=== PATIENT | male | born 1950 | race Hispanic/Latino ===

== ENCOUNTER → 2019-02-06 | Day surgery (SDC) | payer MEDICARE ==
[~2019-02-06] MED LIST: ALLOPURINOL300 MG PO; AMLODIPINE BESY10 MG PO; BUPROPION HCL150 MG PO; CITALOPRAM HBR20 MG PO; CRESTOR10 MG PO; FENTANYL CITRATE/PF 100MCG/2 ML INJ ONE; GLUCAGON FOR INJ 1 MG VIAL ONE; JARDIANCE10 MG PO; LISINOPRIL-HCT1 EAC1 PO; LISINOPRIL10 MG PO; METFORMIN HCL500 MG PO; METOPROLOL SUCC50 MG PO; METRONIDAZOLE500 MG PO; MIDAZOLAM HCL 2 MG/2 ML VIAL ONE; PLAVIX75 MG PO; PROPOFOL IV EMULSION 10 MG/ML 50 ML VIAL ONE; SIMETHICONE 40 MG/0.6 ML BTL ONE
--- OUTSIDE RECORDS SUMMARY | 2019-02-06 10:22 | XMS REPORT | Encounter Summary ---
Author Organization Unknown Address [address] [place] [address] Phone [phone] Care Team Providers Care Fire Extinguisher Installer Name Role Phone Dr. Mike Dawson 3 [phone] Mauricio Shah MD 82 [phone] Dakotah Pinon MD 107 [phone] [facility] 111 [phone] Reason for Visit Hyperlipidemia; Gout; Hypertensive disorder; History of cerebrovascular accident without residual deficits; diabetes Instructions 1. Recurrent major depression citalopram 40 mg tablet Wellbutrin SR 150 mg tablet, 12 hr sustained-release 2. Type 2 diabetes mellitus metformin 500 mg tablet HbA1c (hemoglobin A1c), blood 3. Hypertensive disorder amlodipine 10 mg tablet Zestoretic 20 mg-25 mg tablet metoprolol succinate ER 50 mg tablet,extended release 24 hr CMP, serum or plasma electrocardiogram 4. Hyperlipidemia high cholesterol: care instructions Crestor 20 mg tablet lipid panel, serum 5. History of cerebrovascular accident without residual deficits Plavix 75 mg tablet 6. Gout allopurinol 300 mg tablet uric acid, serum or plasma 7. Depression screening 8. Body mass index 30+ - obesity learning about healthy weight 9. Chronic obstructive lung disease 10. Screening for cardiovascular system disease ankle brachial index Discussion Note: None recorded. Plan of Care Reminders Provider Appointments Est Patient 07/04/2018 8:00AM Mike Sutherland MD Return to Office on or around 07/22/2018 Mike Sutherland MD Lab CMP, Serum or Plasma 06/21/2018 [facility] Laboratory Lipid Panel, Serum 06/21/2018 [facility] Laboratory Uric Acid, Serum or Plasma 06/21/2018 [facility] Laboratory HbA1C (Hemoglobin a1C), Blood 06/21/2018 [facility] Laboratory Referral None recorded. Procedures None recorded. Surgeries None recorded. Imaging Ankle Brachial Index 06/21/2018 [facility] ([facility] [place] Electrocardiogram 06/21/2018 [facility] ([facility] [place] Medications Name Start Date allopurinol 300 mg tablet Take 1 tablet every day by oral route as directed for 90 days. amlodipine 10 mg tablet Take 1 tablet every day by oral route for 90 days. citalopram 40 mg tablet take 1 tablet daily. Crestor 20 mg tablet Take 1 tablet every day by oral route as directed for 90 days. metformin 500 mg tablet Take 0.5 tablets every day by oral route as directed for 90 days. metoprolol succinate ER 50 mg tablet,extended release 24 hr Take 1 tablet twice a day by oral route as directed for 90 days. Plavix 75 mg tablet Take 1 tablet every day by oral route as directed for 90 days. Wellbutrin SR 150 mg tablet, 12 hr sustained-release Take 1 tablet every day by oral route as directed for 30 days. Zestoretic 20 mg-25 mg tablet Take 1 tablet every day by oral route for 90 days. Medications Administered None recorded. Vitals Height Weight BMI Blood Pressure 5 ft 8 in 211.4 lbs 32.1 kg/m2 130/70 mm[Hg] Lab Results None recorded. Allergies Code Code System Name Reaction Severity Status Onset NKDA Problems Name Status Onset Date Source Hyperlipidemia Active 01/05/2016 Major Depressive Disorder Active 01/05/2016 Hypertensive Disorder Active 01/05/2016 History of Cerebrovascular Accident without Residual Deficits Active 01/05/2016 Gout Active 11/03/2016 Procedures Date Name Performed by 09/04/2013 Colonoscopy Information not available Cholecystectomy (Gall Bladder Removal) Information not available Appendectomy Information not available 06/21/2018 Ankle Brachial Index [facility] ([facility]) [address] [address] ([facility] [place]) 06/21/2018 Electrocardiogram [facility] ([facility]) [address] [address] ([facility] [address]) Vaccine List Vaccine Type influenza, high dose seasonal 01/05/20160.5 mL 02/03/20170.5 mL 03/10/20180.5 mL influenza, injectable, quadrivalent 02/03/2015 pneumococcal conjugate PCV 13 06/21/20160.5 mL pneumococcal polysaccharide PPV23 08/16/20170.5 mL zoster 06/21/20160.65 mL Social History Smoking Status Former Smoker (1/2 PPD) Past Encounters 06/21/2018 Recurrent Major Depression; Type 2 Diabetes Mellitus; Hypertensive Disorder; Hyperlipidemia; History of Cerebrovascular Accident without Residual Deficits; Gout; Depression Screening; Body Mass Index 30+ - Obesity; Chronic Obstructive Lung Disease; Screening for Cardiovascular System Disease Mike Sutherland MD: [address] [place] [address], Ph. History of Present Illness Note:F/u on chronic conditions. Needs refills. Compliant with meds. Non compliant with diet or exercise. Not checking glucose readings or BPs at home. No side effects with meds. Hx of major depression complaining of worsening sadness, poor motivation and lack of energy since 6 weeks ago. Denies restlessness, nervousness, suicidal/homicidal thoughts. Review of Systems Comprehensive General Adult ROS Reported By: Patient Constitutional: Constitutional: no fever Eyes: Eyes: no vision change ENMT: Ears: no ear pain. Nose: no sinus problems. Mouth/Throat: no sore throat Cardiovascular: Cardiovascular: no chest pain, no palpitations, no lightheadedness Respiratory: Respiratory: no cough, no wheezing, no shortness of breath Gastrointestinal: Gastrointestinal: no abdominal pain, no nausea, no vomiting, no constipation, no diarrhea Musculoskeletal: Musculoskeletal: no muscle aches, no swelling in the extremities Neurologic: Neurologic: no loss of consciousness, no headaches Psychiatric: Psych: no depression, no alcohol abuse, no anxiety, no suicidal thoughts Physical Exam General Adult Exam (male) Reported By: Patient Constitutional: General Appearance: healthy-appearing, obese. Level of Distress: NAD. Ambulation: ambulating normally Psychiatric: Insight: good judgement. Mental Status: active and alert, normal mood, normal affect. Orientation: to time, to place, to person Eyes: Lids and Conjunctivae: non-injected, no discharge ENMT: Ears: TMs clear. Oropharynx: moist mucous membranes Neck: Neck: supple, trachea midline. Thyroid: no enlargement, non-tender Lungs: Auscultation: breath sounds normal Cardiovascular: Heart Auscultation: RRR, normal S1, normal S2, no murmurs. Neck vessels: no carotid bruits. Pulses including femoral / pedal: normal throughout Abdomen: Inspection and Palpation: soft, non-distended, no tenderness, no guarding Musculoskeletal:: Motor Strength and Tone: normal, normal tone. Joints, Bones, and Muscles: normal movement of all extremities. Extremities: no edema Neurologic: Gait and Station: normal gait Skin: Inspection and palpation: no rash, no lesions
--- OUTSIDE RECORDS SUMMARY | 2019-02-06 10:23 | XMS REPORT | Encounter Summary ---
Author Organization Unknown Address [address] [place] [address] Phone [phone] Care Team Providers Care Director [employer] Name Role Phone Dr. iMke Dawson 3 [phone] Mauricio Shah MD 82 [phone] Dakotah Pinon MD 107 [phone] [facility] 111 [phone] Reason for Visit lab follow-up Instructions 1. Type 2 diabetes mellitus diabetic ophthalmology referral microalbumin:creatinine ratio, urine 2. Hyperlipidemia high cholesterol: care instructions 3. Recurrent major depression Wellbutrin SR 150 mg tablet, 12 hr sustained-release 4. Elevated liver enzymes level Discussion Note: None recorded. Plan of Care Reminders Provider Appointments Return to Office on or around 10/03/2018 Mike Sutherland MD Lab Microalbumin:creatinine Ratio, Urine 07/04/2018 [facility] Laboratory Referral Diabetic Ophthalmology Referral 07/04/2018 Procedures None recorded. Surgeries None recorded. Imaging None recorded. Medications Name Start Date allopurinol 300 mg tablet Take 1 tablet every day by oral route as directed for 90 days. amlodipine 10 mg tablet Take 1 tablet every day by oral route for 90 days. citalopram 40 mg tablet take 1 tablet daily. clopidogrel 75 mg tablet Take 1 tablet every day by oral route as directed for 90 days. lisinopril 20 mg-hydrochlorothiazide 25 mg tablet Take 1 tablet every day by oral route for 90 days. metformin 500 mg tablet Take 0.5 tablets every day by oral route as directed for 90 days. metoprolol succinate ER 50 mg tablet,extended release 24 hr Take 1 tablet twice a day by oral route as directed for 90 days. rosuvastatin 20 mg tablet Take 1 tablet every day by oral route as directed for 90 days. Wellbutrin SR 150 mg tablet, 12 hr sustained-release Take 1 tablet every day by oral route as directed for 30 days. Medications Administered None recorded. Vitals Height Weight BMI Blood Pressure 5 ft 8 in 213.4 lbs 32.4 kg/m2 108/60 mm[Hg] Lab Results Date Name Specimen Result Interpretation Description Value Range Status Address 06/21/2018 CMP, Serum or Plasma High Alt 69 U/L 0-55 U/L Final [facility] Laboratory: [address], [place] High Ast 78 U/L 5-34 U/L Final [facility] Laboratory: [address] [facility], [place] Bun 9.9 mg/dL 8.4-25.7 mg/dL Final [facility] Laboratory: [address] [place] [address], [place] Alk Phos 79 unit/L 40-150 unit/L Final [facility]: [address], [place] High Glucose 209 mg/dL 70-99 mg/dL Final [facility] Laboratory: [address] [facility] [place] Albumin 4.4 g/dL 3.5-5.0 g/dL Final [facility] Laboratory: [address] [place] [address] Creatinine 0.85 mg/dL 0.72-1.25 mg/dL Final [facility]: [address] [place] [address] eGFR Non- >60 mL/min/1.73m2 Final [facility] [address] [facility] Bilirubin 0.7 mg/dL 0.2-1.2 mg/dL Final [facility] Laboratory: [address] [place] [address] eGFR - >60 mL/min/1.73m2 Final [facility] Laboratory: [address] [place] [address] Sodium 137 mEq/L 136-145 mEq/L Final [facility] Laboratory: [address] [place] [address], [place] Potassium 4.0 mEq/L 3.5-5.1 mEq/L Final [facility] Laboratory: [address] Chloride 101 mmol/L 98-107 mmol/L Final [facility] Laboratory: [address] Total Protein 7.4 g/dL 6.4-8.3 g/dL Final [facility] Laboratory: [address] High Calcium 10.1 mg/dL 8.8-10.0 mg/dL Final [facility] Laboratory: [address] Co2 26.3 mmol/L 23.0-31.0 mmol/L Final [facility] Laboratory: [address] Anion Gap 10 calc Final [facility] Laboratory: [address] [place] [address], [place] 06/21/2018 Lipid Panel, Serum Low Hdl 39 mg/dL 40-60 mg/dL Final [facility] Laboratory: [address] High Triglyceride 182 mg/dL 0-149 mg/dL Final [facility] Laboratory: [address] VLDL Calc. 36 mg/dL Final [facility] Laboratory: [address] cholesterol/HDL Ratio 4.6 mg/dL Final [facility] Laboratory: [address] non-HDL Cholesterol Calc. 140 mg/dL 0-160 mg/dL Final [facility] Laboratory: [address] Cholesterol 179 mg/dL 0-199 mg/dL Final [facility] Laboratory: [address] LDL Calc. 104 mg/dL 0-130 mg/dL Final [facility] Laboratory: [address] [place] [address], [place] 06/21/2018 HbA1C (Hemoglobin a1C), Blood High A1C W/eag 10.0 % 1.0- 5.7 % Final [facility] Laboratory: [address] Average Blood Glucose 240 mg/dL Final [facility] Laboratory: [address] [place] [address], [place] 06/21/2018 Uric Acid, Serum or Plasma Uric Acid 4.9 mg/dL 3.5-7.2 mg/dL Final [facility] Laboratory: [address] Allergies Code Code System Name Reaction Severity Status Onset NKDA Problems Name Status Onset Date Source Hyperlipidemia Active 01/05/2016 Major Depressive Disorder Active 01/05/2016 Hypertensive Disorder Active 01/05/2016 History of Cerebrovascular Accident without Residual Deficits Active 01/05/2016 Gout Active 11/03/2016 Type 2 Diabetes Mellitus Active 07/04/2018 Procedures Date Name Performed by 09/04/2013 Colonoscopy Information not available Cholecystectomy (Gall Bladder Removal) Information not available Appendectomy Information not available Vaccine List Vaccine Type influenza, high dose seasonal 01/05/20160.5 mL 02/03/20170.5 mL 03/10/20180.5 mL influenza, injectable, quadrivalent 02/03/2015 pneumococcal conjugate PCV 13 06/21/20160.5 mL pneumococcal polysaccharide PPV23 08/16/20170.5 mL zoster 06/21/20160.65 mL Social History Smoking Status Former Smoker (1/2 PPD) Past Encounters 07/04/2018 Type 2 Diabetes Mellitus; Hyperlipidemia; Recurrent Major Depression; Elevated Liver Enzymes Level Mike Sutherland MD: [address] [place] [address], Ph. 06/21/2018 Recurrent Major Depression; Type 2 Diabetes Mellitus; Hypertensive Disorder; Hyperlipidemia; History of Cerebrovascular Accident without Residual Deficits; Gout; Depression Screening; Body Mass Index 30+ - Obesity; Chronic Obstructive Lung Disease; Screening for Cardiovascular System Disease Mike Sutherland MD: [address] [place] [address], Ph. History of Present Illness Note:Coming to discuss lab results. F/u on major depression: pt hasn't started the wellbutrin yet. Denies suicidal/homicidal thoughts. Review of Systems Comprehensive General Adult ROS Reported By: Patient Cardiovascular: Cardiovascular: no chest pain, no palpitations, no lightheadedness Respiratory: Respiratory: no cough, no wheezing, no shortness of breath Gastrointestinal: Gastrointestinal: no abdominal pain, no nausea, no vomiting, no constipation, no diarrhea Musculoskeletal: Musculoskeletal: no muscle aches, no swelling in the extremities Neurologic: Neurologic: no loss of consciousness, no headaches Psychiatric: Psych: no alcohol abuse, no anxiety, no suicidal thoughts, depression Physical Exam General Adult Exam (male) Reported By: Patient Constitutional: General Appearance: healthy-appearing, obese. Level of Distress: NAD. Ambulation: ambulating normally Psychiatric: Insight: good judgement. Mental Status: active and alert, normal mood, normal affect. Orientation: to time, to place, to person Eyes: Lids and Conjunctivae: non-injected, no discharge Neck: Neck: trachea midline Lungs: Auscultation: breath sounds normal Cardiovascular: Heart Auscultation: RRR, normal S1, normal S2, no murmurs Musculoskeletal:: Motor Strength and Tone: normal, normal tone. Joints, Bones, and Muscles: normal movement of all extremities. Extremities: no edema Neurologic: Gait and Station: normal gait
--- OUTSIDE RECORDS SUMMARY | 2019-02-06 10:23 | XMS REPORT | Encounter Summary ---
Author Organization Unknown Address [address] [place] [address] Phone [phone] Care Team Providers Care Compliance Representative Dealer Name Role Phone Dr. Mike Dawson 3 [phone] Mauricio Shah MD 82 [phone] Dakotah Pinon MD 107 [phone] [facility] 111 [phone] Reason for Visit Hyperlipidemia; Type 2 diabetes mellitus; Hypertensive disorder; AWV Annual Wellness Visit Male (VFP) Instructions 1. Adult health examination 2. Body mass index 30+ - obesity body mass index: care instructions learning about healthy weight 3. Type 2 diabetes mellitus without complication metformin 1,000 mg tablet HbA1c (hemoglobin A1c), blood microalbumin:creatinine ratio, urine 4. History of cerebrovascular accident without residual deficits Plavix 75 mg tablet 5. Hypertensive disorder Zestoretic 20 mg-25 mg tablet 6. Hyperlipidemia rosuvastatin 20 mg tablet high cholesterol: care instructions lipid panel, serum CMP, serum or plasma 7. Screening for malignant neoplasm of colon colonoscopy referral fecal occult blood, stool 8. Depression screening learning about depression 9. At risk for falls preventing falls: care instructions 10. Tinea pedis clotrimazole-betamethasone 1 %-0.05 % topical cream 11. Screening for malignant neoplasm of prostate Discussion Note: None recorded. Plan of Care Patient Instructions It was good to see you in the office today for your Medicare Annual Wellness Visit. You have been provided some information on healthy nutrition, including a diet rich in fruits and vegetables, minimizing simple carbohydrates, salt, and saturated fats. I want to encourage regular cardiovascular exercise such as walking at least 30 minutes daily, 5 times per week. Please remember to schedule any preventive health measures that we talked about today. You have also been provided education on fall prevention and community- based lifestyle interventions to help reduce health risks and promote healthy living in your Annual Wellness folder. Screening Recommendations 1. Vaccines Pneumonia: No further need Influenza: Next Fall 2. Colorectal Cancer Screening: Colonoscopy (every 10 years) Ordered 3. Annual Prostate Screening 4. Annual Depression Screening 5. Annual Alcohol Screening 6. Annual Fall Risk Screening 7. Annual Health Risk Assessment Reminders Provider Appointments Est Patient 01/16/2019 8:00AM Mike Sutherland MD Lab Fecal Occult Blood, Stool 10/16/2018 [facility] HbA1C (Hemoglobin a1C), Blood 10/16/2018 [facility] Laboratory Lipid Panel, Serum 10/16/2018 [facility] Laboratory CMP, Serum or Plasma 10/16/2018 [facility] Microalbumin:creatinine Ratio, Urine 10/16/2018 [facility] Laboratory Referral Colonoscopy Referral 10/16/2018 Sharifa Malagon MD Procedures None recorded. Surgeries None recorded. Imaging None recorded. Medications Name Start Date allopurinol 300 mg tablet Take 1 tablet every day by oral route as directed for 30 days. amlodipine 10 mg tablet Take 1 tablet every day by oral route for 90 days. bupropion HCl SR 150 mg tablet,12 hr sustained-release Take 1 tablet every day by oral route as directed for 30 days. citalopram 40 mg tablet take 1 tablet daily. clotrimazole-betamethasone 1 %-0.05 % topical cream APPLY TO THE AFFECTED AND SURROUNDING AREAS OF SKIN BY TOPICAL ROUTE 2 TIMES PER DAY IN THE MORNING AND EVENING FOR 2 WEEKS metformin 1,000 mg tablet Take 1 tablet twice a day by oral route for 90 days. metoprolol succinate ER 50 mg tablet,extended release 24 hr Take 1 tablet twice a day by oral route as directed for 90 days. Plavix 75 mg tablet Take 1 tablet every day by oral route as directed for 90 days. rosuvastatin 20 mg tablet TAKE 1 TABLET EVERY DAY DIRECTED Zestoretic 20 mg-25 mg tablet Take 1 tablet every day by oral route for 90 days. Medications Administered None recorded. Vitals Height Weight BMI Blood Pressure 5 ft 8 in 210 lbs 31.9 kg/m2 110/72 mm[Hg] Lab Results None recorded. Allergies Code Code System Name Reaction Severity Status Onset NKDA Problems Name Status Onset Date Source Hyperlipidemia Active 01/05/2016 Major Depressive Disorder Active 01/05/2016 Hypertensive Disorder Active 01/05/2016 History of Cerebrovascular Accident without Residual Deficits Active 01/05/2016 Gout Active 11/03/2016 Type 2 Diabetes Mellitus Active 07/04/2018 Procedures Date Name Performed by Colonoscopy Information not available Cholecystectomy (Gall Bladder Removal) Information not available Appendectomy Information not available Vaccine List Vaccine Type influenza, high dose seasonal 01/05/20160.5 mL 02/03/20170.5 mL 03/10/20180.5 mL influenza, injectable, quadrivalent 02/03/2015 pneumococcal conjugate PCV 13 06/21/20160.5 mL pneumococcal polysaccharide PPV23 08/16/20170.5 mL zoster 06/21/20160.65 mL Social History Smoking Status Former Smoker (1/2 PPD) Past Encounters 10/16/2018 Adult Health Examination; Body Mass Index 30+ - Obesity; Type 2 Diabetes Mellitus without Complication; History of Cerebrovascular Accident without Residual Deficits; Hypertensive Disorder; Hyperlipidemia; Screening for Malignant Neoplasm of Colon; Depression Screening; At Risk for Falls; Tinea Pedis; Screening for Malignant Neoplasm of Prostate Mike Sutherland MD: [address] [place] [address], Ph. History of Present Illness Mini Cog Reported By: Patient Functional Ability: Personal/Social/ Draw a clock and write in the numbers in the correct place, and set the time to 10 minutes after 11 o'clock was completed correctly? Yes, 3 word recall: Your nurse or doctor will ask you to remember 3 words. In 5 minutes, they will ask you to repeat them. Patient recalled 3 words Opioid Use Assessment Reported By: Patient Opioid Use Assessment:: Current Use of Opioids : no use of opioids (no further questions required) Note:F/u on chronic conditions. Needs refills. Compliant with meds. Non compliant with diet or exercise. Not checking glucose readings or BPs at home. No side effects with meds. No new concerns. Review of Systems Comprehensive General Adult ROS Reported By: Patient Constitutional: Constitutional: no fever Eyes: Eyes: no vision change ENMT: Ears: no ear pain. Mouth/Throat: no sore throat Cardiovascular: Cardiovascular: no chest pain, no palpitations, no lightheadedness Respiratory: Respiratory: no cough, no wheezing, no shortness of breath Gastrointestinal: Gastrointestinal: no abdominal pain, no nausea, no vomiting, no constipation, no diarrhea Musculoskeletal: Musculoskeletal: no muscle aches, no swelling in the extremities Integumentary: Skin: rash, itching Neurologic: Neurologic: no loss of consciousness, no headaches Psychiatric: Psych: no depression, no alcohol abuse, no anxiety, no suicidal thoughts Physical Exam General Adult Exam (male) Reported By: Patient Constitutional: General Appearance: healthy-appearing, obese. Level of Distress: NAD. Ambulation: ambulating normally Eyes: Lids and Conjunctivae: non-injected, no discharge. EOM: EOMI ENMT: Ears: TMs clear. Nose: no sinus tenderness. Lips, Teeth, and Gums: no mouth or lip ulcers. Oropharynx: moist mucous membranes Neck: Neck: supple, [...] Station: normal gait Skin: Inspection and palpation: ; scaly/flaking lesions in the feet
--- OUTSIDE RECORDS SUMMARY | 2019-02-06 10:23 | XMS REPORT | Encounter Summary ---
Author Organization Unknown Address [address] [place] [address] Phone [phone] Care Team Providers [employer] Portal Developer Name Role Phone Dr. Mike Dawson 3 [phone] Mauricio Shah MD 82 [phone] Dakotah Pinon MD 107 [phone] [facility] 111 [phone] Reason for Visit Hyperlipidemia; Type 2 diabetes mellitus; Major depressive disorder; Hypertensive disorder Instructions 1. Type 2 diabetes mellitus HbA1c (hemoglobin A1c), blood FreeStyle Gautam 14 Day [place] FreeStyle Gautam 14 Day Sensor kit 2. Hypertensive disorder 3. Hyperlipidemia high cholesterol: care instructions CMP, serum or plasma lipid panel, serum 4. Obesity learning about healthy weight 5. Influenza vaccination Fluzone High-Dose 2019-20 (PF) 180 mcg/0.5 mL intramuscular syringe 6. Recurrent major depression 7. Dyspnea spirometry testing 8. Chronic obstructive lung disease ProAir HFA 90 mcg/actuation aerosol inhaler Discussion Note: None recorded. Plan of Care Reminders Provider Appointments Return to Office on or around 04/09/2019 Mike Sutherland MD Lab HbA1C (Hemoglobin a1C), Blood 01/05/2019 [facility] CMP, Serum or Plasma 01/05/2019 [facility] Lipid Panel, Serum 01/05/2019 [facility] Referral None recorded. Procedures None recorded. [...] 40 mg tablet take 1 tablet daily. KEEP APPT! clopidogrel 75 mg tablet Take 1 tablet every day by oral route as directed for 90 days. clotrimazole-betamethasone 1 %-0.05 % topical cream APPLY TO THE AFFECTED AND SURROUNDING AREAS OF SKIN BY TOPICAL ROUTE 2 TIMES PER DAY IN THE MORNING AND EVENING FOR 2 WEEKS Jardiance 10 mg tablet Take 1 tablet every day by oral route as directed for 90 days. lisinopril 20 mg-hydrochlorothiazide 25 mg tablet Take 1 tablet every day by oral route for 90 days. metformin 1,000 mg tablet Take 1 tablet twice a day by oral route for 90 days. metoprolol succinate ER 50 mg tablet,extended release 24 hr Take 1 tablet twice a day by oral route as directed for 90 days. ProAir HFA 90 mcg/actuation aerosol inhaler Inhale 2 puffs every 6-8 hours by inhalation route as needed for 10 days. rosuvastatin 20 mg tablet TAKE 1 TABLET EVERY DAY DIRECTED Medications Administered None recorded. Vitals Height Weight BMI Blood Pressure 5 ft 8 in 212.2 lbs 32.3 kg/m2 132/84 mm[Hg] Results Lab Results None recorded. Allergies Code Code System Name Reaction Severity Status Onset NKDA Problems Name Status Onset Date Source Hyperlipidemia Active 01/05/2016 Major Depressive Disorder Active 01/05/2016 Hypertensive Disorder Active 01/05/2016 History of Cerebrovascular Accident without Residual Deficits Active 01/05/2016 Gout Active 11/03/2016 Atherosclerosis of Aorta Active 04/04/2018 Chronic Obstructive Lung Disease Active 06/21/2018 Type 2 Diabetes Mellitus Active 07/04/2018 Procedures Date Name Performed by Colonoscopy Information not available Cholecystectomy (Gall Bladder Removal) Information not available Appendectomy Information not available Vaccine List Vaccine Type influenza, high dose seasonal 01/05/20160.5 mL 02/03/20170.5 mL 03/10/20180.5 mL 01/05/20190.5 mL influenza, injectable, quadrivalent 02/03/2015 pneumococcal conjugate PCV 13 06/21/20160.5 mL pneumococcal polysaccharide PPV23 08/16/20170.5 mL zoster 06/21/20160.65 mL Social History Tobacco Smoking Status Former Smoker (1/2 PPD) Past Encounters 01/05/2019 Type 2 Diabetes Mellitus; Hypertensive Disorder; Hyperlipidemia; Obesity; Influenza Vaccination; Recurrent Major Depression; Dyspnea; Chronic Obstructive Lung Disease Mike Sutherland MD: [id number] [place] [address], Ph. History of Present Illness Note:F/u on chronic conditions. Compliant with meds, diet and exercise. Not checking glucose readings or BPs at home. No side effects with meds. No new concerns.<div>Depression: stable. Denies suicidal/homicidal thoughts.</div> Review of Systems Comprehensive General Adult ROS Reported By: Patient Constitutional: Constitutional: no fever Eyes: Eyes: no vision change ENMT: Ears: no ear pain. Mouth/Throat: no sore throat Cardiovascular: Cardiovascular: no chest pain, no palpitations, no lightheadedness Respiratory: Respiratory: no cough, no wheezing, shortness of breath Gastrointestinal: Gastrointestinal: no abdominal [...] S2, no murmurs. Neck vessels: no carotid bruits Abdomen: Inspection and Palpation: soft, non-distended, no tenderness, no guarding Musculoskeletal:: Motor Strength and Tone: normal, normal tone. Joints, Bones, and Muscles: normal movement of all extremities. Extremities: no edema Neurologic: Gait and Station: normal gait
[2019-02-06 11:57] VITALS: BP 125/71
== END | disposition home or self-care (01) ==
LOC: OR 08:35
PROVIDERS: ATTEND Internal Medicine Gastroenterology
DX: Z12.11 Encounter for screening for malignant neoplasm of colon (principal); D12.0 Benign neoplasm of cecum; D12.3 Benign neoplasm of transverse colon; D12.4 Benign neoplasm of descending colon; K29.50 Unspecified chronic gastritis without bleeding; K29.80 Duodenitis without bleeding; K21.0 Gastro-esophageal reflux disease with esophagitis; K57.30 Diverticulosis of large intestine without perforation or abscess without bleeding; K44.9 Diaphragmatic hernia without obstruction or gangrene; K64.8 Other hemorrhoids; E11.9 Type 2 diabetes mellitus without complications; E78.5 Hyperlipidemia, unspecified; I10 Essential (primary) hypertension; Z01.810 Encounter for preprocedural cardiovascular examination; Z79.02 Long term (current) use of antithrombotics/antiplatelets; Z79.84 Long term (current) use of oral hypoglycemic drugs; Z68.31 Body mass index [BMI] 31.0-31.9, adult; Z86.73 Personal history of transient ischemic attack (TIA), and cerebral infarction without residual deficits
CPT/HCPCS: 36415; 43239; 45384; 82948; 88305; 88312; 93005; J1610; J2250; J2704; J3010; 45378

== ENCOUNTER 2023-10-07 20:08 | Inpatient (IN) | payer MEDICARE ==
[~2023-10-07] VITALS: Ht 175.3 cm; Wt 89.8 kg
[~2023-10-07 20:08] MED LIST changes: -FENTANYL CITRATE/PF 100MCG/2 ML INJ ONE; -GLUCAGON FOR INJ 1 MG VIAL ONE; -MIDAZOLAM HCL 2 MG/2 ML VIAL ONE; -PROPOFOL IV EMULSION 10 MG/ML 50 ML VIAL ONE; -SIMETHICONE 40 MG/0.6 ML BTL ONE
[2023-10-07 20:46] VITALS: TEMP 98.5
[2023-10-07 20:58] LABS: BASOPHILS % 0.4 % (0.0-1.0); EOSINOPHILS # (AUTO) 0.1 (0.0-0.4); EOSINOPHILS % 2.3 % (0.0-6.0); HEMATOCRIT 42.9 % (38.2-49.6); HEMOGLOBIN 14.4 g/dL (14.0-18.0); LYMPHOCYTES % 38.1 % (18.0-39.1); MEAN CORPUSCULAR HEMOGLOBIN 33.3 pg (28-32); MEAN CORPUSCULAR HGB CONC 33.6 g/dL (31-35); MEAN CORPUSCULAR VOLUME 99.1 fL (81-99); MONOCYTES # (AUTO) 0.4 (0.2-0.8); MONOCYTES % 6.9 % (4.4-11.3); NEUTROPHILS # (AUTO) 2.7 (2.1-6.9); NEUTROPHILS % 52.1 % (38.7-80.0); PLATELET COUNT 202 x10e3/uL (140-360); RED BLOOD COUNT 4.33 x10e6/uL (4.3-5.7); RED CELL DISTRIBUTION WIDTH 13.2 % (11.7-14.4); WHITE BLOOD COUNT 5.25 x10e3/uL (4.8-10.8)
[2023-10-07 20:59] LABS: CLARITY,URINE TURBID (CLEAR); COLOR,URINE RED (YELLOW)
[2023-10-07 21:07] LABS: INR 0.94; PROTHROMBIN TIME 13.2 seconds (11.9-14.5)
[2023-10-07 21:08] LABS: PARTIAL THROMBOPLASTIN TIME 28.1 seconds (23.8-35.5)
[2023-10-07 21:10] LABS: LEUKOCYTE ESTERASE ,URINE NEGATIVE (NEGATIVE); NITRITE,URINE NEGATIVE (NEGATIVE); PH,URINE 7.5 (5 - 7); PROTEIN,URINE DIPSTICK >=300 (NEGATIVE)
[2023-10-07 21:11] LABS: BILIRUBIN,URINE NEGATIVE (NEGATIVE); GLUCOSE, URINE 1+ (NEGATIVE); KETONES,URINE NEGATIVE (NEGATIVE); RBC,URINE >50 /HPF (0-5); URINE UROBILINOGEN 0.2 mg/dL (0.2 - 1)
[2023-10-07 21:40] LABS: ALBUMIN 4.3 g/dL (3.5-5.0); ALBUMIN/GLOBULIN RATIO 1.4 (0.8-2.0); ANION GAP 17.4 mmol/L (8-16); BILIRUBIN,TOTAL 0.6 mg/dL (0.2-1.2); CALCIUM 9.6 mg/dL (8.4-10.2); CREATININE, SERUM 0.75 mg/dL (0.72-1.25); TOTAL PROTEIN 7.4 g/dL (6.5-8.1)
[2023-10-07 21:41] LABS: POTASSIUM 3.4 mmol/L (3.5-5.1)
[2023-10-07] MEDS ORDERED: IOPAMIDOL 370 MG/ML 100 ML INFUS..BTL INJ ONE (21:57)
[2023-10-07] MEDS ORDERED: SODIUM CHLORIDE 0.9% 250ML 250 ML ONE (21:58)
[2023-10-08] VITALS (11 sets, daily range): BP systolic 134–164; BP diastolic 61–94; PULSE 58–74; RESP 17–22; TEMP 97.5–98.6; O2SAT 94–99
[2023-10-08] MEDS ORDERED: DEXTROSE 50% SYRINGE 50 ML IV PRN (00:30)
[2023-10-08] MEDS: ONDANSETRON HCL INJ 2MG/ML 2ML 2 MG/ML VIAL IV PRN (05:08)
[2023-10-08] MEDS: Morphine 4mg INJECTION 4 MG/ML INJ IV PRN (05:09)
[2023-10-08] MEDS: SODIUM CHLORIDE 0.9% 1000ML 1,000 ML IV SCH (05:13)
[2023-10-08] MEDS: INSULIN REGULAR, HUMAN 100 UNIT/1 ML SQ SCH (07:30)
[2023-10-08] MEDS ORDERED: LISINOPRIL-HCT1 EACH PO (09:55)
[2023-10-08] MEDS ORDERED: MELATONIN 3 MG TAB PO PRN (14:30)
[2023-10-09] VITALS (11 sets, daily range): BP systolic 139–169; BP diastolic 64–79; PULSE 64–85; RESP 18–22; TEMP 97.8–99.5; O2SAT 95–99
[2023-10-09 05:30] LABS: BASOPHILS % 0.2 % (0.0-1.0); EOSINOPHILS # (AUTO) 0.1 (0.0-0.4); EOSINOPHILS % 1.3 % (0.0-6.0); HEMOGLOBIN 11.6 g/dL (14.0-18.0); LYMPHOCYTES # (AUTO) 2.2 (1.0-3.2); LYMPHOCYTES % 25.8 % (18.0-39.1); MEAN CORPUSCULAR HEMOGLOBIN 33.1 pg (28-32); MEAN CORPUSCULAR HGB CONC 33.1 g/dL (31-35); MONOCYTES # (AUTO) 0.7 (0.2-0.8); MONOCYTES % 8.1 % (4.4-11.3); NEUTROPHILS # (AUTO) 5.4 (2.1-6.9); NEUTROPHILS % 64.2 % (38.7-80.0); PLATELET COUNT 146 x10e3/uL (140-360); RED CELL DISTRIBUTION WIDTH 13.2 % (11.7-14.4); WHITE BLOOD COUNT 8.38 x10e3/uL (4.8-10.8)
[2023-10-09 05:56] LABS: CHOL/HDL RATIO 2.3 (3.9-4.7)
[2023-10-09 05:58] LABS: ALBUMIN 3.3 g/dL (3.5-5.0); ALBUMIN/GLOBULIN RATIO 1.4 (0.8-2.0); ANION GAP 11.5 mmol/L (8-16); CALCIUM 8.2 mg/dL (8.4-10.2); CREATININE, SERUM 0.68 mg/dL (0.72-1.25); POTASSIUM 3.5 mmol/L (3.5-5.1); TOTAL PROTEIN 5.7 g/dL (6.5-8.1)
[2023-10-09 06:25] LABS: BILIRUBIN,TOTAL 0.6 mg/dL (0.2-1.2)
[2023-10-09] MEDS: SIMVASTATIN 40 MG TAB PO SCH (08:47)
[2023-10-09] MEDS: CITALOPRAM HYDROBROMIDE 20 MG TAB PO SCH (08:47)
[2023-10-09] MEDS: METOPROLOL SUCCINATE 50 MG TAB XL PO SCH (08:48)
[2023-10-09] MEDS: AMLODIPINE BESYLATE 10 MG TAB PO SCH (08:48)
[2023-10-09] MEDS: BUPROPION HCL SR 150 MG TAB PO SCH (08:49)
[2023-10-09] MEDS: ALLOPURINOL 300 MG TAB PO SCH (08:49)
[2023-10-09] MEDS ORDERED: NICOTINE 21 MG/EA PATCH TOP PRN (11:15)
[2023-10-09] MEDS: DOCUSATE SODIUM 100 MG CAP PO PRN (11:41)
[2023-10-09] MEDS: ALBUTEROL/IPRATROPIUM 3 ML NEB NEB PRN (16:39)
[2023-10-10] VITALS (8 sets, daily range): BP systolic 128–161; BP diastolic 65–81; PULSE 63–76; RESP 18–20; TEMP 97.5–99.1; O2SAT 93–97
[2023-10-10 05:36] LABS: ANION GAP 12.2 mmol/L (8-16); BLOOD UREA NITROGEN < 5 mg/dL (7-26); CALCIUM 8.3 mg/dL (8.4-10.2); CARBON DIOXIDE 24 mmol/L (22-29); CHLORIDE 105 mmol/L (98-107); EST GLOMERULAR FILTRATION RATE 103 ML/MIN (>=60); GLUCOSE 125 mg/dL (74-118); SODIUM 138 mmol/L (136-145)
[2023-10-10 05:37] LABS: BUN/CREATININE RATIO 8 (6-25); POTASSIUM 3.2 mmol/L (3.5-5.1)
[2023-10-10] MEDS ORDERED: IOPAMIDOL 610MG/1ML 300 MG/ML VIAL IV ONE (07:34)
[2023-10-10 08:45] LABS: HEMATOCRIT 34.7 % (38.2-49.6); HEMOGLOBIN 11.8 g/dL (14.0-18.0)
[2023-10-10] MEDS ORDERED: PHENAZOPYRIDINE HCL 100 MG TAB PO PRN (09:45)
[2023-10-10] MEDS: FENTANYL CITRATE/PF 100MCG/2 ML INJ ONE (09:52)
[2023-10-10] MEDS: METOPROLOL SUCCINATE 25 MG TAB XL PO SCH (10:59)
[2023-10-10] MEDS: NIFEDIPINE CR 30 MG TAB PO SCH (10:59)
[2023-10-10] MEDS ORDERED: ROCURONIUM BROMIDE 10 MG/ML 5ML VIAL IV ONE (12:33)
[2023-10-10] MEDS ORDERED: CEFTRIAXONE 1 GM VIAL ONE (12:33)
[2023-10-10] MEDS ORDERED: LIDOCAINE HCL 2% LOCAL INJ 5 ML SDV VIAL INJ ONE (12:33)
[2023-10-10] MEDS ORDERED: PROPOFOL IV EMULSION 10 MG/ML 20 ML VIAL ONE (12:33)
[2023-10-10] MEDS ORDERED: SEVOFLURANE INHAL SOLN 250 ML PEN BTL ONE (12:33)
[2023-10-10] MEDS ORDERED: EPHEDRINE SULFATE INJ 50 MG/ML VIAL ONE (12:33)
[2023-10-10] MEDS ORDERED: FENTANYL CITRATE/PF 100MCG/2 ML INJ ONE (17:41)
[2023-10-11] VITALS (8 sets, daily range): BP systolic 128–146; BP diastolic 63–73; PULSE 65–74; RESP 17–20; TEMP 97.8–99.1; O2SAT 94–97
[2023-10-11 05:24] LABS: BASOPHILS % 0.3 % (0.0-1.0); EOSINOPHILS # (AUTO) 0.1 (0.0-0.4); EOSINOPHILS % 1.8 % (0.0-6.0); HEMATOCRIT 35.6 % (38.2-49.6); LYMPHOCYTES # (AUTO) 1.7 (1.0-3.2); LYMPHOCYTES % 21.9 % (18.0-39.1); MEAN CORPUSCULAR HEMOGLOBIN 33.6 pg (28-32); MEAN CORPUSCULAR HGB CONC 33.7 g/dL (31-35); MEAN CORPUSCULAR VOLUME 99.7 fL (81-99); MONOCYTES # (AUTO) 0.7 (0.2-0.8); MONOCYTES % 8.7 % (4.4-11.3); NEUTROPHILS # (AUTO) 5.3 (2.1-6.9); NEUTROPHILS % 67.2 % (38.7-80.0); PLATELET COUNT 151 x10e3/uL (140-360); RED BLOOD COUNT 3.57 x10e6/uL (4.3-5.7); RED CELL DISTRIBUTION WIDTH 13.1 % (11.7-14.4)
[2023-10-11 05:43] LABS: ANION GAP 12.6 mmol/L (8-16); BLOOD UREA NITROGEN < 5 mg/dL (7-26); CALCIUM 8.5 mg/dL (8.4-10.2); CARBON DIOXIDE 24 mmol/L (22-29); CHLORIDE 107 mmol/L (98-107); CREATININE, SERUM 0.62 mg/dL (0.72-1.25); EST GLOMERULAR FILTRATION RATE 102 ML/MIN (>=60); GLUCOSE 116 mg/dL (74-118); POTASSIUM 3.6 mmol/L (3.5-5.1); SODIUM 140 mmol/L (136-145)
[2023-10-11 05:44] LABS: BUN/CREATININE RATIO 8 (6-25)
[2023-10-11] MEDS: FAMOTIDINE 20 MG/2 ML VIAL IV SCH (22:05)
[2023-10-12] VITALS: BP 120/63; PULSE 77; RESP 18; TEMP 99.1; O2SAT 97
[2023-10-12 03:53] VITALS: BP 146/73; PULSE 74; RESP 18; TEMP 98.2; O2SAT 95
[2023-10-12 04:00] VITALS: BP 121/67; PULSE 86; RESP 18; TEMP 98.7; O2SAT 96
[2023-10-12 07:38] VITALS: PULSE 80; RESP 18; O2SAT 94
[2023-10-12 07:46] VITALS: BP 138/73; PULSE 75; RESP 18; TEMP 98.9; O2SAT 94
[2023-10-12] MEDS ORDERED: CEPHALEXIN500 MG PO (08:09)
[2023-10-12 11:29] VITALS: BP 135/61; PULSE 75; RESP 18; TEMP 99; O2SAT 98
[2023-10-18] MEDS ORDERED: CRESTOR40 MG (15:27)
[2023-10-18] MEDS ORDERED: LISINOPRIL-HCT1 EACH (15:27)
[2023-10-18] MEDS ORDERED: METFORMIN HCL850 MG PO (15:27)
[2023-10-18] MEDS ORDERED: CEPHALEXIN500 MG PO (15:27)
== END 2023-10-12 12:35 | disposition home or self-care (01) | DRG 696 ==
LOC: ER 20:12 → ERHOLD 10-08 00:17 → MED/SURG3 10-08 03:26
PROVIDERS: ADMIT Internal Medicine; ATTEND Internal Medicine
PROC: 0T9B70Z Drainage of Bladder with Drainage Device, Via Natural or Artificial Opening (ICD-10-PCS; principal; 2023-10-08)
PROC: 0TJB8ZZ Inspection of Bladder, Via Natural or Artificial Opening Endoscopic (ICD-10-PCS; 2023-10-10)
PROC: 0T9B70Z Drainage of Bladder with Drainage Device, Via Natural or Artificial Opening (ICD-10-PCS; 2023-10-10)
PROC: BT161ZZ Fluoroscopy of Right Ureter using Low Osmolar Contrast (ICD-10-PCS; 2023-10-10)
PROC: BT171ZZ Fluoroscopy of Left Ureter using Low Osmolar Contrast (ICD-10-PCS; 2023-10-10)
PROC: 0DJD7ZZ Inspection of Lower Intestinal Tract, Via Natural or Artificial Opening (ICD-10-PCS; 2023-10-10)
DX: R31.0 Gross hematuria (principal); I69.951 Hemiplegia and hemiparesis following unspecified cerebrovascular disease affecting right dominant side; E83.51 Hypocalcemia; I10 Essential (primary) hypertension; E11.9 Type 2 diabetes mellitus without complications; N31.9 Neuromuscular dysfunction of bladder, unspecified; J44.9 Chronic obstructive pulmonary disease, unspecified; E78.5 Hyperlipidemia, unspecified; M10.9 Gout, unspecified; N40.0 Benign prostatic hyperplasia without lower urinary tract symptoms; E66.9 Obesity, unspecified; Z68.29 Body mass index [BMI] 29.0-29.9, adult; Z11.52 Encounter for screening for COVID-19; Z79.02 Long term (current) use of antithrombotics/antiplatelets; Z79.84 Long term (current) use of oral hypoglycemic drugs; Z90.49 Acquired absence of other specified parts of digestive tract; F17.210 Nicotine dependence, cigarettes, uncomplicated
CPT/HCPCS: 36415; 51703; 74178; 74420; 80048; 80053; 80061; 81001; 82948; 83036; 85014; 85018; 85025; 85610; 85730; 94640; 94799; 99284; C1769; J0696; J2001; J2270; J2405; J7030; J7050; Q9967; U0002

== ENCOUNTER 2023-10-15 12:53 | Emergency (ER) | payer MEDICARE ==
[~2023-10-15] VITALS: Ht 175.3 cm; Wt 89.8 kg
[~2023-10-15 12:53] MED LIST changes: +CEPHALEXIN500 MG PO; +LISINOPRIL-HCT1 EACH PO
[2023-10-15 13:36] VITALS: PULSE 74; RESP 16; TEMP 98.3; O2SAT 99
[2023-10-18] MEDS ORDERED: CRESTOR40 MG (15:27)
[2023-10-18] MEDS ORDERED: CEPHALEXIN500 MG PO (15:27)
[2023-10-18] MEDS ORDERED: METFORMIN HCL850 MG PO (15:27)
[2023-10-18] MEDS ORDERED: LISINOPRIL-HCT1 EACH (15:27)
== END 2023-10-15 16:00 | disposition home or self-care (01) ==
LOC: ER 13:04
DX: Z46.6 Encounter for fitting and adjustment of urinary device (principal); I10 Essential (primary) hypertension; E11.9 Type 2 diabetes mellitus without complications; J44.9 Chronic obstructive pulmonary disease, unspecified; E78.5 Hyperlipidemia, unspecified; M10.9 Gout, unspecified; I69.351 Hemiplegia and hemiparesis following cerebral infarction affecting right dominant side
CPT/HCPCS: 87086; 99282

== ENCOUNTER 2023-10-20 05:41 | Inpatient (IN) | payer MEDICARE ==
[2023-10-19 08:38] LABS: BASOPHILS % 0.5 % (0.0-1.0); EOSINOPHILS # (AUTO) 0.3 (0.0-0.4); HEMATOCRIT 42.1 % (38.2-49.6); HEMOGLOBIN 13.8 g/dL (14.0-18.0); LYMPHOCYTES # (AUTO) 2.1 (1.0-3.2); LYMPHOCYTES % 25.5 % (18.0-39.1); MEAN CORPUSCULAR HEMOGLOBIN 32.5 pg (28-32); MEAN CORPUSCULAR HGB CONC 32.8 g/dL (31-35); MEAN CORPUSCULAR VOLUME 99.3 fL (81-99); MONOCYTES # (AUTO) 0.6 (0.2-0.8); MONOCYTES % 7.2 % (4.4-11.3); NEUTROPHILS # (AUTO) 5.3 (2.1-6.9); NEUTROPHILS % 63.4 % (38.7-80.0); PLATELET COUNT 283 x10e3/uL (140-360); RED BLOOD COUNT 4.24 x10e6/uL (4.3-5.7); RED CELL DISTRIBUTION WIDTH 12.4 % (11.7-14.4); WHITE BLOOD COUNT 8.29 x10e3/uL (4.8-10.8)
[2023-10-19 08:57] LABS: ANION GAP 9.8 mmol/L (8-16); CALCIUM 10.2 mg/dL (8.4-10.2); CREATININE, SERUM 0.79 mg/dL (0.72-1.25); POTASSIUM 3.8 mmol/L (3.5-5.1)
[~2023-10-20] VITALS: Ht 175.3 cm; Wt 89.8 kg
[~2023-10-20 05:41] MED LIST changes: +CRESTOR40 MG; +LISINOPRIL-HCT1 EACH; +METFORMIN HCL850 MG PO
[2023-10-20] MEDS ORDERED: IOPAMIDOL 610MG/1ML 300 MG/ML VIAL IV ONE (06:20)
[2023-10-20] MEDS: CEFTRIAXONE 1 GM VIAL ONE (06:29)
[2023-10-20] MEDS: SODIUM CHLORIDE 0.9% 1000ML 1,000 ML ONE (06:30)
[2023-10-20] MEDS: GENTAMICIN 80MG/NS 100 ML 200 ML IV ONE (06:30)
[2023-10-20] MEDS ORDERED: SENNA-S TABLET PO SCH (09:00)
[2023-10-20] MEDS ORDERED: PHENAZOPYRIDINE HCL 100 MG TAB PO PRN (09:00)
[2023-10-20] MEDS: SODIUM CHLORIDE 0.9% 1000ML 1,000 ML IV SCH (09:00)
[2023-10-20] MEDS ORDERED: DIPHENHYDRAMINE HCL 25 MG CAP PO PRN (09:00)
[2023-10-20] MEDS ORDERED: ACETAMINOPHEN/CODEINE 300MG - 30MG TAB PO PRN (09:00)
[2023-10-20] MEDS ORDERED: ONDANSETRON HCL INJ 2MG/ML 2ML 2 MG/ML VIAL IV PRN (09:00)
[2023-10-20 09:31] LABS: BASOPHILS % 0.3 % (0.0-1.0); EOSINOPHILS # (AUTO) 0.2 (0.0-0.4); EOSINOPHILS % 1.9 % (0.0-6.0); HEMATOCRIT 36.7 % (38.2-49.6); HEMOGLOBIN 11.8 g/dL (14.0-18.0); LYMPHOCYTES # (AUTO) 1.6 (1.0-3.2); LYMPHOCYTES % 17.8 % (18.0-39.1); MEAN CORPUSCULAR HEMOGLOBIN 32.8 pg (28-32); MEAN CORPUSCULAR HGB CONC 32.2 g/dL (31-35); MEAN CORPUSCULAR VOLUME 101.9 fL (81-99); MONOCYTES # (AUTO) 0.3 (0.2-0.8); MONOCYTES % 3.7 % (4.4-11.3); NEUTROPHILS # (AUTO) 6.7 (2.1-6.9); NEUTROPHILS % 75.8 % (38.7-80.0); PLATELET COUNT 242 x10e3/uL (140-360); RED CELL DISTRIBUTION WIDTH 12.7 % (11.7-14.4); WHITE BLOOD COUNT 8.82 x10e3/uL (4.8-10.8)
[2023-10-20 09:49] LABS: ANION GAP 13.3 mmol/L (8-16); CALCIUM 7.8 mg/dL (8.4-10.2); CREATININE, SERUM 0.76 mg/dL (0.72-1.25); POTASSIUM 4.3 mmol/L (3.5-5.1)
[2023-10-20] MEDS: FENTANYL CITRATE/PF 100MCG/2 ML INJ IV ONE (09:58)
[2023-10-20 11:35] VITALS: BP 122/65; PULSE 74; RESP 16; O2SAT 97
[2023-10-20] MEDS ORDERED: PROPOFOL IV EMULSION 10 MG/ML 20 ML VIAL ONE (13:38)
[2023-10-20] MEDS ORDERED: LIDOCAINE HCL 2% LOCAL INJ 5 ML SDV VIAL INJ ONE (13:38)
[2023-10-20] MEDS ORDERED: ONDANSETRON HCL INJ 2MG/ML 2ML 2 MG/ML VIAL ONE (13:38)
[2023-10-20] MEDS ORDERED: EPHEDRINE SULFATE INJ 50 MG/ML VIAL ONE (13:38)
[2023-10-20] MEDS ORDERED: ACETAMINOPHEN 1000 MG/100 ML IV ONE (13:38)
[2023-10-20] MEDS ORDERED: DEXAMETHASONE SOD PHOS INJ 4 MG/ML SDV ONE (13:38)
[2023-10-20] MEDS ORDERED: SEVOFLURANE INHAL SOLN 250 ML PEN BTL ONE (13:38)
[2023-10-20 13:51] VITALS: PULSE 78; RESP 18; O2SAT 96
[2023-10-20] MEDS ORDERED: FENTANYL CITRATE/PF 100MCG/2 ML INJ ONE (14:34)
[2023-10-20 15:58] VITALS: BP 138/69; PULSE 69; RESP 19; TEMP 98; O2SAT 98
[2023-10-20 19:40] VITALS: PULSE 77; RESP 18; O2SAT 99
[2023-10-20 20:00] VITALS: BP 125/92; PULSE 64; RESP 18; TEMP 98.3; O2SAT 96
[2023-10-21] VITALS (9 sets, daily range): BP systolic 123–151; BP diastolic 59–74; PULSE 61–79; RESP 16–20; TEMP 97.7–98.7; O2SAT 96–98
[2023-10-21 05:03] LABS: BASOPHILS % 0.2 % (0.0-1.0); HEMATOCRIT 35.4 % (38.2-49.6); HEMOGLOBIN 11.7 g/dL (14.0-18.0); LYMPHOCYTES # (AUTO) 1.5 (1.0-3.2); LYMPHOCYTES % 13.2 % (18.0-39.1); MEAN CORPUSCULAR HEMOGLOBIN 32.8 pg (28-32); MEAN CORPUSCULAR HGB CONC 33.1 g/dL (31-35); MEAN CORPUSCULAR VOLUME 99.2 fL (81-99); MONOCYTES # (AUTO) 0.6 (0.2-0.8); MONOCYTES % 5.2 % (4.4-11.3); NEUTROPHILS # (AUTO) 9.3 (2.1-6.9); NEUTROPHILS % 80.9 % (38.7-80.0); PLATELET COUNT 249 x10e3/uL (140-360); RED BLOOD COUNT 3.57 x10e6/uL (4.3-5.7); RED CELL DISTRIBUTION WIDTH 12.3 % (11.7-14.4); WHITE BLOOD COUNT 11.48 x10e3/uL (4.8-10.8)
[2023-10-21 05:45] LABS: ANION GAP 8.1 mmol/L (8-16); CREATININE, SERUM 0.67 mg/dL (0.72-1.25); POTASSIUM 4.1 mmol/L (3.5-5.1)
[2023-10-21] MEDS: FENTANYL CITRATE/PF 100MCG/2 ML INJ ONE (09:36)
[2023-10-21] MEDS: SENNA-S TABLET PO SCH (09:42)
[2023-10-21] MEDS ORDERED: DEXTROSE 50% SYRINGE 50 ML IV PRN (17:15)
[2023-10-21] MEDS: METOPROLOL SUCCINATE 50 MG TAB XL PO SCH (18:01)
[2023-10-21] MEDS: AMLODIPINE BESYLATE 10 MG TAB PO SCH (18:02)
[2023-10-21] MEDS: INSULIN LISPRO 100 UNIT/1 ML 3ML VIAL SQ SCH (21:00)
[2023-10-22] VITALS (10 sets, daily range): BP systolic 128–176; BP diastolic 65–73; PULSE 57–66; RESP 18–21; TEMP 97.4–98.5; O2SAT 96–100
[2023-10-22 04:53] LABS: BASOPHILS # (AUTO) 0.1 (0.0-0.1); BASOPHILS % 0.5 % (0.0-1.0); EOSINOPHILS # (AUTO) 0.1 (0.0-0.4); EOSINOPHILS % 1.4 % (0.0-6.0); HEMATOCRIT 35.7 % (38.2-49.6); HEMOGLOBIN 11.7 g/dL (14.0-18.0); LYMPHOCYTES # (AUTO) 2.9 (1.0-3.2); LYMPHOCYTES % 28.7 % (18.0-39.1); MEAN CORPUSCULAR HEMOGLOBIN 32.5 pg (28-32); MEAN CORPUSCULAR HGB CONC 32.8 g/dL (31-35); MEAN CORPUSCULAR VOLUME 99.2 fL (81-99); MONOCYTES # (AUTO) 0.8 (0.2-0.8); MONOCYTES % 7.6 % (4.4-11.3); NEUTROPHILS # (AUTO) 6.2 (2.1-6.9); NEUTROPHILS % 61.4 % (38.7-80.0); PLATELET COUNT 262 x10e3/uL (140-360); RED CELL DISTRIBUTION WIDTH 12.6 % (11.7-14.4)
[2023-10-22 05:08] LABS: ANION GAP 14.5 mmol/L (8-16); CALCIUM 8.6 mg/dL (8.4-10.2); CREATININE, SERUM 0.62 mg/dL (0.72-1.25); POTASSIUM 3.5 mmol/L (3.5-5.1)
[2023-10-22] MEDS: CITALOPRAM HYDROBROMIDE 20 MG TAB PO SCH (09:39)
[2023-10-22] MEDS: LISINOPRIL 20 MG TAB PO SCH (09:40)
[2023-10-22] MEDS: HYDROCHLOROTHIAZIDE 25 MG TAB PO SCH (09:40)
[2023-10-22] MEDS: ALLOPURINOL 300 MG TAB PO SCH (09:40)
[2023-10-23] VITALS (10 sets, daily range): BP systolic 136–147; BP diastolic 58–74; PULSE 60–69; RESP 16–20; TEMP 97.7–98.6; O2SAT 97–99
[2023-10-23 05:20] LABS: BASOPHILS % 0.4 % (0.0-1.0); EOSINOPHILS # (AUTO) 0.3 (0.0-0.4); EOSINOPHILS % 2.8 % (0.0-6.0); HEMATOCRIT 38.4 % (38.2-49.6); HEMOGLOBIN 12.6 g/dL (14.0-18.0); LYMPHOCYTES # (AUTO) 2.2 (1.0-3.2); LYMPHOCYTES % 23.2 % (18.0-39.1); MEAN CORPUSCULAR HEMOGLOBIN 32.4 pg (28-32); MEAN CORPUSCULAR HGB CONC 32.8 g/dL (31-35); MEAN CORPUSCULAR VOLUME 98.7 fL (81-99); MONOCYTES # (AUTO) 0.6 (0.2-0.8); NEUTROPHILS # (AUTO) 6.5 (2.1-6.9); NEUTROPHILS % 67.2 % (38.7-80.0); PLATELET COUNT 323 x10e3/uL (140-360); RED BLOOD COUNT 3.89 x10e6/uL (4.3-5.7); RED CELL DISTRIBUTION WIDTH 12.7 % (11.7-14.4); WHITE BLOOD COUNT 9.63 x10e3/uL (4.8-10.8)
[2023-10-23 05:28] LABS: ANION GAP 14.4 mmol/L (8-16); CREATININE, SERUM 0.67 mg/dL (0.72-1.25)
[2023-10-23 05:33] LABS: POTASSIUM 3.4 mmol/L (3.5-5.1)
[2023-10-24] VITALS (9 sets, daily range): BP systolic 106–147; BP diastolic 63–73; PULSE 60–89; RESP 18–20; TEMP 97.6–98.7; O2SAT 94–99
[2023-10-24 06:10] LABS: BASOPHILS # (AUTO) 0.1 (0.0-0.1); BASOPHILS % 0.7 % (0.0-1.0); EOSINOPHILS # (AUTO) 0.3 (0.0-0.4); EOSINOPHILS % 3.3 % (0.0-6.0); HEMATOCRIT 38.6 % (38.2-49.6); HEMOGLOBIN 12.8 g/dL (14.0-18.0); LYMPHOCYTES % 24.2 % (18.0-39.1); MEAN CORPUSCULAR HEMOGLOBIN 32.7 pg (28-32); MEAN CORPUSCULAR HGB CONC 33.2 g/dL (31-35); MEAN CORPUSCULAR VOLUME 98.5 fL (81-99); MONOCYTES # (AUTO) 0.6 (0.2-0.8); MONOCYTES % 7.3 % (4.4-11.3); NEUTROPHILS # (AUTO) 5.4 (2.1-6.9); PLATELET COUNT 350 x10e3/uL (140-360); RED BLOOD COUNT 3.92 x10e6/uL (4.3-5.7); RED CELL DISTRIBUTION WIDTH 12.7 % (11.7-14.4); WHITE BLOOD COUNT 8.44 x10e3/uL (4.8-10.8)
[2023-10-24 06:31] LABS: ANION GAP 13.6 mmol/L (8-16); CALCIUM 9.4 mg/dL (8.4-10.2); CREATININE, SERUM 0.66 mg/dL (0.72-1.25); POTASSIUM 3.6 mmol/L (3.5-5.1)
[2023-10-25] VITALS (8 sets, daily range): BP systolic 127–154; BP diastolic 61–77; PULSE 61–70; RESP 17–20; TEMP 97.3–98.8; O2SAT 96–100
== END 2023-10-25 20:53 | disposition left against medical advice (07) | DRG 713 ==
LOC: OR 05:41 → MERGE 08:55 → PACU V 08:55 → MED/SURG 11:35
PROVIDERS: ADMIT Internal Medicine; ATTEND Internal Medicine
PROC: 0VB08ZZ Excision of Prostate, Via Natural or Artificial Opening Endoscopic (ICD-10-PCS; principal; 2023-10-20 07:25)
DX: N40.1 Benign prostatic hyperplasia with lower urinary tract symptoms (principal); I69.351 Hemiplegia and hemiparesis following cerebral infarction affecting right dominant side; J44.9 Chronic obstructive pulmonary disease, unspecified; R33.8 Other retention of urine; I10 Essential (primary) hypertension; E78.5 Hyperlipidemia, unspecified; E11.9 Type 2 diabetes mellitus without complications; E66.9 Obesity, unspecified; M10.9 Gout, unspecified; Z68.29 Body mass index [BMI] 29.0-29.9, adult; Z90.49 Acquired absence of other specified parts of digestive tract; F17.210 Nicotine dependence, cigarettes, uncomplicated
CPT/HCPCS: 36415; 71046; 80048; 82948; 83735; 85025; 88305; 93005; 94799; J0696; J1100; J1580; J2001; J2405; J7030